=== PATIENT | male | born 1955 ===

== ENCOUNTER 2019-01-24 07:23 | Outpatient (CLI) | payer OTHER | END 2019-01-24 07:27 | disposition home or self-care (01) | LOC: SONOGRAMA 07:23 | DX: E04.2 Nontoxic multinodular goiter (principal) ==

== ENCOUNTER 2021-04-08 08:16 | Outpatient (CLI) | payer OTHER | END 2021-04-08 08:23 | disposition home or self-care (01) | LOC: SONOGRAMA 08:16 | PROVIDERS: ATTEND Pathology Anatomic Pathology & Clinical Pathology | DX: E04.1 Nontoxic single thyroid nodule (principal) ==